=== PATIENT | male | born 1975 | race American Indian/Alaskan Native ===

== ENCOUNTER 2016-09-16 13:39 | Emergency (ER) | payer MEDICARE ==
[2016-09-16 15:29] VITALS: BP 132/88
--- NOTE | 2016-09-16 15:36 | Emergency Department Report ---
Chief Complaint: Anxiety Stated Complaint: DIZZINESS,CHEST PAIN, PANIC ATTACK Time Seen by Provider: 09/16/16 15:23 - HPI History of Present Illness: PT states he has been stressed. PT states his fiance left and he is home with the kids. PT states he has head pressure and he was having some chest pain - ROS Review of Systems: + anxiety + headache - Exam Vital Signs: Vital Signs 09/16/16 15:23 Temperature 98.2 F Pulse Rate 58 L Respiratory 18 Rate Blood Pressure 132/88 O2 Sat by Pulse 100 Oximetry Physical Exam: PT looks well, non toxic GSC 15 steady gait MSE screening note: Focused history and physical exam performed. Due to findings the following was ordered: labs, ekg, xr ED Disposition for MSE Condition: Stable
[2016-09-16 15:58] LABS: Basophils % (Auto) 0.8 % (0.0-1.8); Eosinophils % (Auto) 1.5 % (0.0-4.3); Hemoglobin 13.2 gm/dl (11.8-15.2); Mean Corpuscular HGB Conc 33 % (32-34); Mean Corpuscular Hemoglobin 29 pg (28-32); Mean Corpuscular Volume 88 fl (84-94); Platelet Count 282 K/mm3 (140-440); Red Blood Count 4.53 M/mm3 (3.65-5.03); Red Cell Distribution Width 13.4 % (13.2-15.2); White Blood Count 11.7 K/mm3 (4.5-11.0)
[2016-09-16 16:12] LABS: Anion Gap 17 mmol/L; BUN/Creatinine Ratio 7.69; Blood Urea Nitrogen 10 mg/dL (9-20); Calcium 9.5 mg/dL (8.4-10.2); Carbon Dioxide 26 mmol/L (22-30); Glucose 102 mg/dL (75-100); Potassium 4.6 mmol/L (3.6-5.0); Sodium 133 mmol/L (137-145)
[2016-09-16 16:22] LABS: Urine Drugs of Abuse Note Disclamer
[2016-09-16 16:49] LABS: Bilirubin,Urine NEG (Negative); Blood,Urine NEG (Negative); Ketones,Urine NEG (Negative); Leukocyte Esterase,Urine NEG (Negative); Nitrite,Urine NEG (Negative); Protein,Urine <15 mg/dL mg/dL (Negative); RBC,Urine < 1.0 /HPF (0.0-6.0); Urobilinogen,Urine < 2.0 mg/dL (<2.0)
[2016-09-16 16:52] LABS: WBC,Urine < 1.0 /HPF (0.0-6.0)
--- NOTE | 2016-09-16 22:05 | XRay Report ---
FINAL REPORT EXAM: XR CHEST ROUTINE 2V HISTORY: CHEST PAIN TECHNIQUE: PA and lateral chest radiographs PRIORS: None. FINDINGS: No mediastinal shift. Cardiac silhouette is not enlarged. No pneumothorax, effusion, or focal pulmonary opacity. No acute skeletal finding. IMPRESSION: No focal pulmonary opacity.
--- NOTE | 2016-09-17 14:11 | ED Elopement Review ---
ED Pt Elopement review - Results review Lab results: Laboratory Tests 09/16/16 09/16/16 09/16/16 15:37 15:37 15:37 WBC 11.7 H RBC 4.53 Hgb 13.2 Hct 40.0 MCV 88 MCH 29 MCHC 33 RDW 13.4 Plt Count 282 Lymph % (Auto) 21.2 Worth % (Auto) 6.1 Eos % (Auto) 1.5 Baso % (Auto) 0.8 Lymph # 2.5 Worth # 0.7 Eos # 0.2 Baso # 0.1 Seg Neutrophils % 70.4 H Seg Neutrophils # 8.3 H Sodium 133 L Potassium 4.6 Chloride 95.0 L Carbon Dioxide 26 Anion Gap 17 BUN 10 Creatinine 1.3 Estimated GFR > 60 BUN/Creatinine Ratio 7.69 Glucose 102 H Calcium 9.5 Troponin T < 0.010 Urine Color Urine Turbidity Urine pH Ur Specific [place] Urine Protein Urine Glucose (UA) Urine Ketones Urine Blood Urine Nitrite Urine Bilirubin Urine Urobilinogen Ur Leukocyte Esterase Urine WBC (Auto) Urine RBC (Auto) Urine Opiates Screen Urine Methadone Screen Ur Barbiturates Screen Ur Phencyclidine Scrn Ur Amphetamines Screen U Benzodiazepines Scrn Urine Cocaine Screen U Marijuana (THC) Screen Drugs of Abuse Note Plasma/Serum Alcohol < 0.01 09/16/16 09/16/16 16:10 16:10 WBC RBC Hgb Hct MCV MCH MCHC RDW Plt Count Lymph % (Auto) Worth % (Auto) Eos % (Auto) Baso % (Auto) Lymph # Worth # Eos # Baso # Seg Neutrophils % Seg Neutrophils # Sodium Potassium Chloride Carbon Dioxide Anion Gap BUN Creatinine Estimated GFR BUN/Creatinine Ratio Glucose Calcium Troponin T Urine Color Colorless Urine Turbidity Clear Urine pH 6.0 Ur Specific [place] 1.001 L Urine Protein <15 mg/dl Urine Glucose (UA) Neg Urine Ketones Neg Urine Blood Neg Urine Nitrite Neg Urine Bilirubin Neg Urine Urobilinogen < 2.0 Ur Leukocyte Esterase Neg Urine WBC (Auto) < 1.0 Urine RBC (Auto) < 1.0 Urine Opiates Screen Presumptive negative Urine Methadone Screen Presumptive negative Ur Barbiturates Screen Presumptive negative Ur Phencyclidine Scrn Presumptive negative Ur Amphetamines Screen Presumptive negative U Benzodiazepines Scrn Presumptive negative Urine Cocaine Screen Presumptive negative U Marijuana (THC) Screen Presumptive negative Drugs of Abuse Note Disclamer Plasma/Serum Alcohol - Call Back decision Pt Call Back Decision: No action required
== END 2016-09-16 22:36 | disposition left against medical advice (07) ==
LOC: ED 13:39
DX: R42 Dizziness and giddiness (principal); R41.9 Unspecified symptoms and signs involving cognitive functions and awareness; R07.9 Chest pain, unspecified; Z53.21 Procedure and treatment not carried out due to patient leaving prior to being seen by health care provider
CPT/HCPCS: 36415; 71020; 80048; 80307; 81001; 84484; 85025; 93005; 93010; G0480; 80320

== ENCOUNTER 2016-11-16 19:56 | Emergency (ER) | payer MEDICARE ==
[2016-11-16 22:05] LABS: Basophils % (Auto) 0.5 % (0.0-1.8); Eosinophils % (Auto) 0.8 % (0.0-4.3); Hematocrit 40.1 % (35.5-45.6); Hemoglobin 13.5 gm/dl (11.8-15.2); Mean Corpuscular HGB Conc 34 % (32-34); Mean Corpuscular Hemoglobin 30 pg (28-32); Mean Corpuscular Volume 89 fl (84-94); Platelet Count 269 K/mm3 (140-440); Red Blood Count 4.51 M/mm3 (3.65-5.03); Red Cell Distribution Width 13.4 % (13.2-15.2); White Blood Count 11.8 K/mm3 (4.5-11.0)
[2016-11-16 22:16] LABS: Anion Gap 21 mmol/L; BUN/Creatinine Ratio 8.46; Blood Urea Nitrogen 11 mg/dL (9-20); Calcium 9.3 mg/dL (8.4-10.2); Carbon Dioxide 24 mmol/L (22-30); Chloride 94.1 mmol/L (98-107); Glucose 97 mg/dL (75-100); Potassium 3.8 mmol/L (3.6-5.0); Sodium 135 mmol/L (137-145)
[2016-11-17 01:38] VITALS: BP 135/71
--- NOTE | 2016-11-17 02:43 | Emergency Department Report ---
ED General Adult HPI - General Chief complaint: Anxiety Stated complaint: ANXIETY Time Seen by Provider: 11/17/16 02:37 Source: patient, RN notes reviewed, old records reviewed Mode of arrival: Ambulatory Limitations: No Limitations - History of Present Illness Initial comments: This is a 41-year-old male. He is previously unknown to me. He typically follows at the [facility]. The patient presents to the ER with complaint of a panic attack. He reports that his chest was racing. He reports this has since resolved. He denies headache, neck pain, chest pain, abdominal pain or shortness of breath. He denies nausea, vomiting or diaphoresis. There is no leg pain. There is no leg swelling. No recent trips greater than 4 hours. No recent hospitalizations. No recent cocaine use. No recent aspirin use. He is not homicidal. He is not suicidal. -: Gradual Location: chest Quality: aching Consistency: now resolved Improves with: none Worsens with: other (stress) - Related Data Home Medications Medication Instructions Recorded Confirmed Last Taken Lisinopril [Zestril] 40 mg PO QDAY 01/22/14 11/17/16 11/16/16 Sertraline [Zoloft] 100 mg PO QDAY 01/22/14 11/17/16 11/16/16 Simvastatin [Zocor TAB] 40 mg PO QHS 01/22/14 11/17/16 11/16/16 Allergies Allergy/AdvReac Type Severity Reaction Status Date / Time Penicillins Allergy Unknown Verified 09/16/16 15:29 bee venom (honey bee) AdvReac Swelling Verified 09/16/16 15:29 ED Review of Systems ROS: Stated complaint: ANXIETY Other details as noted in HPI Eyes: denies: vision change ENT: denies: throat pain Respiratory: denies: cough Cardiovascular: palpitations Gastrointestinal: denies: nausea, vomiting Genitourinary: denies: urgency, dysuria Musculoskeletal: denies: back pain Skin: denies: lesions Neurological: denies: headache, weakness Psychiatric: anxiety. denies: homicidal thoughts, suicidal thoughts ED Past Medical Hx - Past Medical History Previous Medical History?: Yes Hx Hypertension: Yes Hx Renal Disease: Yes ("SLIGHTLY ELEVATED CREAT. LEVEL") Hx Psychiatric Treatment: Yes (anxiety, depression) Additional medical history: hyperlipidemia - Surgical History Past Surgical History?: Yes Additional Surgical History: kidney biopsy. LYMPH NODE BIOPSY - Social History Smoking Status: Never Smoker Substance Use Type: None - Medications Home Medications: Home Medications Medication Instructions Recorded Confirmed Last Taken Type Lisinopril [Zestril] 40 mg PO QDAY 01/22/14 11/17/16 11/16/16 History Sertraline [Zoloft] 100 mg PO QDAY 01/22/14 11/17/16 11/16/16 History Simvastatin [Zocor TAB] 40 mg PO QHS 01/22/14 11/17/16 11/16/16 History ED Physical Exam - General Limitations: No Limitations General appearance: alert, in no apparent distress - Head Head exam: Present: atraumatic, normocephalic - Eye Eye exam: Present: normal appearance, PERRL, EOMI. Absent: nystagmus - ENT ENT exam: Present: normal exam, normal orophraynx, mucous membranes moist, normal external ear exam - Neck Neck exam: Present: normal inspection, full ROM. Absent: tenderness, meningismus - Respiratory Respiratory exam: Present: normal lung sounds bilaterally. Absent: respiratory distress, wheezes, rales, rhonchi, stridor, chest wall tenderness, accessory muscle use, decreased breath sounds, prolonged expiratory - Cardiovascular Cardiovascular Exam: Present: regular rate, normal rhythm, normal heart sounds. Absent: bradycardia, tachycardia, irregular rhythm, systolic murmur, diastolic murmur, rubs, gallop - GI/Abdominal GI/Abdominal exam: Present: soft, normal bowel sounds. Absent: distended, tenderness, guarding, rebound, rigid, pulsatile mass - Rectal Rectal exam: Present: deferred - Extremities Exam Extremities exam: Present: normal inspection, full ROM, normal capillary refill. Absent: tenderness, pedal edema, joint swelling, calf tenderness - Back Exam Back exam: Present: normal inspection, full ROM. Absent: tenderness, CVA tenderness (R), CVA tenderness (L), muscle spasm, paraspinal tenderness, vertebral tenderness - Neurological Exam Neurological exam: Present: alert, oriented X3, normal gait, other (Extraocular movements intact. Tongue midline. No facial droop. Facial sensation intact to light touch in the V1, V2, V3 distribution bilaterally. 5 and 5 strength in 4 extremities.. Sensation is intact to light touch in 4 extremities.). Absent : motor sensory deficit - Psychiatric Psychiatric exam: Present: anxious. Absent: homicidal ideation, suicidal ideation - Skin Skin exam: Present: warm, dry, intact, normal color. Absent: rash ED Course Vital Signs 11/16/16 11/17/16 11/17/16 21:23 00:55 01:21 Temperature 98.4 F Pulse Rate 79 74 91 H Respiratory 18 16 Rate Blood Pressure 146/91 O2 Sat by Pulse 100 Oximetry 11/17/16 11/17/16 11/17/16 01:23 01:25 01:38 Temperature 98.4 F Pulse Rate 71 66 Respiratory 21 19 Rate Blood Pressure 135/71 135/71 O2 Sat by Pulse 100 100 Oximetry 11/17/16 01:44 Temperature Pulse Rate Respiratory 18 Rate Blood Pressure O2 Sat by Pulse 100 Oximetry ED Medical Decision Making - Lab Data Result diagrams: 11/16/16 21:40 11/16/16 21:40 Vital Signs 11/16/16 11/17/16 11/17/16 21:23 00:55 01:21 Temperature 98.4 F Pulse Rate 79 74 91 H Respiratory 18 16 Rate Blood Pressure 146/91 O2 Sat by Pulse 100 Oximetry 11/17/16 11/17/16 11/17/16 01:23 01:25 01:38 Temperature 98.4 F Pulse Rate 71 66 Respiratory 21 19 Rate Blood Pressure 135/71 135/71 O2 Sat by Pulse 100 100 Oximetry 11/17/16 01:44 Temperature Pulse Rate Respiratory 18 Rate Blood Pressure O2 Sat by Pulse 100 Oximetry Lab Results 11/16/16 11/16/16 11/17/16 Range/Units 21:40 21:40 00:46 WBC 11.8 H (4.5-11.0) K/mm3 RBC 4.51 (3.65-5.03) M/mm3 Hgb 13.5 (11.8-15.2) gm/dl Hct 40.1 (35.5-45.6) % MCV 89 (84-94) fl MCH 30 (28-32) pg MCHC 34 (32-34) % RDW 13.4 (13.2-15.2) % Plt Count 269 (140-440) K/mm3 Lymph % (Auto) 25.5 (13.4-35.0) % [place] % (Auto) 3.9 (0.0-7.3) % Eos % (Auto) 0.8 (0.0-4.3) % Baso % (Auto) 0.5 (0.0-1.8) % Lymph # 3.0 (1.2-5.4) K/mm3 [place] # 0.5 (0.0-0.8) K/mm3 Eos # 0.1 (0.0-0.4) K/mm3 Baso # 0.1 (0.0-0.1) K/mm3 Seg Neutrophils % 69.3 (40.0-70.0) % Seg Neutrophils # 8.1 H (1.8-7.7) K/mm3 Sodium 135 L (137-145) mmol/L Potassium 3.8 (3.6-5.0) mmol/L Chloride 94.1 L (98-107) mmol/L Carbon Dioxide 24 (22-30) mmol/L Anion Gap 21 mmol/L BUN 11 (9-20) mg/dL Creatinine 1.3 (0.8-1.5) mg/dL Estimated GFR > 60 ml/min BUN/Creatinine Ratio 8.46 % Glucose 97 (75-100) mg/dL Calcium 9.3 (8.4-10.2) mg/dL Troponin T < 0.010 < 0.010 (0.00-0.029) ng/mL - EKG Data -: EKG Interpreted by Tx EKG shows normal: sinus rhythm - EKG Data 11/17/16 03:16 EKG #1 demonstrates sinus, 67 beats per minute, normal axis, not morphologically consistent with STEMI, Q waves noted in the inferior leads. EKG #2 demonstrates sinus bradycardia, first-degree AV block, not morphologically consistent with STEMI. EKGs appear unchanged when compared to prior from September 2016 11/17/16 03:18 - Radiology Data Radiology results: image reviewed interpreted by me: X-ray of the chest is negative for acute disease - Medical Decision Making Differential diagnosis: Panic attack, mood disorder, acute coronary syndrome, pneumonia, costochondritis Assessment and plan: 41-year-old male who presents with his typical panic attack. No pulmonary embolus or DVT risk factors, low risk by well's criteria criteria, low risk by FLOR score, low risk by heart score, perc negative Chest x-ray negative. Troponin negative 2. EKG unchanged 2, and unchanged compared to prior. Patient clinically sober at this time, does not require 1013. Indicates he will follow-up. I don't feel patient requires admission to the hospital for ACS risk stratification. He can follow-up as an outpatient. Critical care attestation.: If time is entered above; I have spent that time in minutes in the direct care of this critically ill patient, excluding procedure time. ED Disposition Clinical Impression: Chest tightness Disposition: DC-01 TO HOME OR SELFCARE Is pt being admited?: No Does the pt Need Aspirin: No Condition: Stable Instructions: Panic Disorder (ED) Additional Instructions: Continue current outpatient medications. Follow up with a primary care doctor or disability rater within the next 7-10 days. Return to the ER right away with new pain, worsening pain, migration of pain, fevers, chills, chest pain, shortness of breath, confusion, intractable nausea or vomiting, inability to tolerate liquid feeds. Referrals: PRIMARY CARE, [Primary Care Provider] - 3-5 Days DAGOBERTO MONGE MD [Staff Physician] - 3-5 Days MARNIE KELLOGG MD [Staff Physician] - 3-5 Days FLAVIO REA MD [Staff Physician] - 3-5 Days
--- NOTE | 2016-11-17 07:35 | XRay Report ---
ROUTINE CHEST, TWO VIEWS: HISTORY: chest pain. The trachea, heart, mediastinal contour, lung spencer and bony thorax are unremarkable. IMPRESSION: Unremarkable chest x-ray.
== END 2016-11-17 03:31 | disposition home or self-care (01) ==
LOC: ED 19:56
DX: R07.89 Other chest pain (principal); I10 Essential (primary) hypertension; F32.9 Major depressive disorder, single episode, unspecified; F41.9 Anxiety disorder, unspecified; Z88.0 Allergy status to penicillin; Z91.030 Bee allergy status
CPT/HCPCS: 36415; 71020; 80048; 84484; 85025; 93005; 93010

== ENCOUNTER 2016-11-20 14:17 | Emergency (ER) | payer MEDICARE ==
[2016-11-20 14:41] VITALS: BP 147/93
== END 2016-11-20 19:56 | disposition left against medical advice (07) ==
LOC: ED 14:17
DX: F41.0 Panic disorder [episodic paroxysmal anxiety] (principal); Z53.21 Procedure and treatment not carried out due to patient leaving prior to being seen by health care provider
CPT/HCPCS: 93005; 93010

== ENCOUNTER 2016-12-09 09:12 | Emergency (ER) | payer MEDICARE ==
[2016-12-09 10:10] LABS: Basophils % (Auto) 0.5 % (0.0-1.8); Eosinophils % (Auto) 1.2 % (0.0-4.3); Hematocrit 43.2 % (35.5-45.6); Hemoglobin 14.4 gm/dl (11.8-15.2); Mean Corpuscular HGB Conc 33 % (32-34); Mean Corpuscular Hemoglobin 30 pg (28-32); Mean Corpuscular Volume 89 fl (84-94); Platelet Count 299 K/mm3 (140-440); Red Blood Count 4.84 M/mm3 (3.65-5.03); Red Cell Distribution Width 13.2 % (13.2-15.2); White Blood Count 14.3 K/mm3 (4.5-11.0)
[2016-12-09 10:15] LABS: Anion Gap 20 mmol/L; BUN/Creatinine Ratio 13.07; Blood Urea Nitrogen 17 mg/dL (9-20); Calcium 9.1 mg/dL (8.4-10.2); Carbon Dioxide 21 mmol/L (22-30); Chloride 98.2 mmol/L (98-107); Glucose 140 mg/dL (75-100); Potassium 3.6 mmol/L (3.6-5.0); Sodium 136 mmol/L (137-145)
[2016-12-09 10:39] LABS: INR 0.96 (0.87-1.13)
[2016-12-09 10:40] LABS: Partial Thromboplastin Time 30.3 Sec. (24.2-36.6)
[2016-12-09 17:50] VITALS: BP 136/92
== END 2016-12-09 17:35 | disposition left against medical advice (07) ==
LOC: ED 09:12
DX: R07.9 Chest pain, unspecified (principal); Z53.21 Procedure and treatment not carried out due to patient leaving prior to being seen by health care provider
CPT/HCPCS: 36415; 80048; 84484; 85025; 85610; 85730; 93005; 93010

== ENCOUNTER 2019-01-27 13:17 | Emergency (ER) | payer MEDICARE ==
[2019-01-27 14:04] VITALS: BP 152/90
--- NOTE | 2019-01-27 14:09 | Event Note ---
ED Screening Note Date of service: 01/27/19 Time: 14:08 ED Screening Note: Pt complains of panic attack x today. tates hx of anxiety and panic attacks. Reports attacks worsening and occurring twice a week now due to life stressors. PT states he had chest tightness and trouble swallowing and states he is concerned for his heart. Denies any current chest pain or symptoms This initial assessment/diagnostic orders/clinical plan/treatment(s) is/are subject to change based on patients health status, clinical progression and re- assessment by fellow clinical providers in the ED. Further treatment and workup at subsequent clinical providers discretion. Patient/guardian urged not to elope from the ED as their condition may be serious if not clinically assessed and managed. Initial orders include: Labs CXR
--- NOTE | 2019-01-27 14:55 | Emergency Department Report ---
ED Anxiety HPI - General Chief Complaint: Anxiety Stated Complaint: PANIC ATTACK Time Seen by Provider: 01/27/19 14:49 Source: patient Mode of arrival: Ambulatory - History of Present Illness Initial Comments: 43-year-old -Malaysian male presents to the emergency room reporting had a panic attack prior to coming in. Patient states that he has panic attacks at least twice a week. Patient reports has a past medical history of hypertension hypercholesterolemia panic attacks. Patient reports she is followed by the [facility]. Patient denies any suicidal or homicidal ideation. Patient reports is currently taken Celexa 20 mg. Patient admits he gets about 6-8 hours of sleep at night. MD Complaint: anxiety Onset/Timin -: hour(s) Symptoms: other (felt weird.) Place: home Previous History of Same: Yes Severity: mild Quality: intermittant, similar to prior episodes Provoking factors: none known Improves With: deep breaths Worsens With: nothing - Related Data Home Medications: Home Medications Medication Instructions Recorded Confirmed Last Taken Lisinopril [Zestril] 40 mg PO QDAY 01/22/14 11/17/16 11/16/16 Sertraline [Zoloft] 100 mg PO QDAY 01/22/14 11/17/16 11/16/16 Simvastatin (Nf) [Zocor TAB] 40 mg PO QHS 01/22/14 11/17/16 11/16/16 Allergies/Adverse Reactions: Allergies Allergy/AdvReac Type Severity Reaction Status Date / Time Penicillins Allergy Unknown Verified 01/27/19 14:04 venom-honey bee AdvReac Swelling Verified 01/27/19 14:04 [bee venom (honey bee)] ED Review of Systems ROS: Stated complaint: PANIC ATTACK Other details as noted in HPI Comment: All other systems reviewed and negative ED Past Medical Hx - Past Medical History Hx Hypertension: Yes Hx Renal Disease: Yes ("SLIGHTLY ELEVATED CREAT. LEVEL") Hx Psychiatric Treatment: Yes (anxiety, depression) Additional medical history: hyperlipidemia - Surgical History Additional Surgical History: kidney biopsy. LYMPH NODE BIOPSY - Social History Smoking Status: Never Smoker Substance Use Type: None - Medications Home Medications: Home Medications Medication Instructions Recorded Confirmed Last Taken Type Lisinopril [Zestril] 40 mg PO QDAY 01/22/14 11/17/16 11/16/16 History Sertraline [Zoloft] 100 mg PO QDAY 01/22/14 11/17/16 11/16/16 History Simvastatin (Nf) [Zocor TAB] 40 mg PO QHS 01/22/14 11/17/16 11/16/16 History ED Physical Exam - General Limitations: No Limitations General appearance: alert, in no apparent distress - Head Head exam: Present: atraumatic, normocephalic - Eye Eye exam: Present: normal appearance - Neurological Exam Neurological exam: Present: alert, oriented X3, normal gait - Psychiatric Psychiatric exam: Present: normal affect, normal mood - Skin Skin exam: Present: warm, dry, intact, normal color. Absent: rash ED Course Vital Signs 01/27/19 14:02 Temperature 99.1 F Pulse Rate 75 Respiratory 16 Rate Blood Pressure 152/90 O2 Sat by Pulse 98 Oximetry ED Medical Decision Making - Medical Decision Making 43-year-old -Malaysian male presents to the emergency room reporting had a panic attack prior to coming in. Patient states that he has panic attacks at least twice a week. Patient reports has a past medical history of hypertension hypercholesterolemia panic attacks. Patient reports she is followed by the [facility]. Patient denies any suicidal or homicidal ideation. Patient reports is currently taken Celexa 20 mg. Patient admits he gets about 6-8 hours of sleep at night. Patient is to follow-up with the [facility]. Critical care attestation.: If time is entered above; I have spent that time in minutes in the direct care of this critically ill patient, excluding procedure time. ED Disposition Clinical Impression: Anxiety Disposition: DC-01 TO HOME OR SELFCARE Is pt being admited?: No Does the pt Need Aspirin: No Condition: Stable Instructions: Anxiety (ED) Additional Instructions: Continue with medications. Follow up at the [facility] or [facility]. I have listed their information below for your convenience. Referrals: [facility] [Outside] - 3-5 Days [facility] [Outside] - 3-5 Days
== END 2019-01-27 15:16 | disposition home or self-care (01) ==
LOC: ED 13:17
DX: F41.9 Anxiety disorder, unspecified (principal); I10 Essential (primary) hypertension; Z79.899 Other long term (current) drug therapy; Z88.0 Allergy status to penicillin; Z91.030 Bee allergy status
CPT/HCPCS: 99282

== ENCOUNTER 2019-01-30 15:01 | Emergency (ER) | payer MEDICARE ==
[2019-01-30 15:31] VITALS: BP 142/87
--- NOTE | 2019-01-30 15:32 | Emergency Department Report ---
Blank Doc - Documentation Documentation: This is a 43-year-old male that presents with depression and anxiety. Denies any SI/HI. This initial assessment/diagnostic orders/clinical plan/treatment(s) is/are subject to change based on patient's health status, clinical progression and re- assessment by fellow clinical providers in the ED. Further treatment and workup at subsequent clinical providers discretion. Patient/guardians urged not to elope from the ED as their condition may be serious if not clinically assessed and managed. Initial orders include: 1- Patient sent to MAIN ED for further evaluation and treatment 2- drop forge hand was notified to have patient be brought back [facility]. 3- RN was notified to keep patient as close range and observation until room available
[2019-01-30 17:02] LABS: RBC,Urine < 1.0 /HPF (0.0-6.0); WBC,Urine < 1.0 /HPF (0.0-6.0)
[2019-01-30 17:03] LABS: BUN/Creatinine Ratio 8; Basophils # (Auto) 0.1 K/mm3 (0.0-0.1); Basophils % (Auto) 0.7 % (0.0-1.8); Blood Urea Nitrogen 10 mg/dL (9-20); Calcium 9.6 mg/dL (8.4-10.2); Eosinophils # (Auto) 0.1 K/mm3 (0.0-0.4); Eosinophils % (Auto) 1.5 % (0.0-4.3); Hematocrit 45.4 % (35.5-45.6); Hemoglobin 15.3 gm/dl (11.8-15.2); Hemolysis Index 0; Lymphocytes # (Auto) 2.1 K/mm3 (1.2-5.4); Lymphocytes % (Auto) 23.6 % (13.4-35.0); Mean Corpuscular HGB Conc 34 % (32-34); Mean Corpuscular Volume 90 fl (84-94); Monocytes # (Auto) 0.6 K/mm3 (0.0-0.8); Monocytes % (Auto) 7.3 % (0.0-7.3); Platelet Count 324 K/mm3 (140-440); Red Blood Count 5.04 M/mm3 (3.65-5.03)
[2019-01-30 17:09] LABS: Amphetamine Screen,Urine PRESUMPTIVE NEGATIVE; Benzodiazepines Screen,Urine PRESUMPTIVE NEGATIVE; Cannabinoid Screen,Urine PRESUMPTIVE NEGATIVE; Cocaine Screen,Urine PRESUMPTIVE NEGATIVE; Methadone Screen,Urine PRESUMPTIVE NEGATIVE; Opiate Screen,Urine PRESUMPTIVE NEGATIVE
[2019-01-30 17:20] LABS: Bilirubin,Urine Negative (Negative); Color,Urine Straw (Yellow)
[2019-01-30 17:21] LABS: Blood,Urine Negative (Negative); Protein,Urine <15 mg/dL mg/dL (Negative); Urobilinogen,Urine < 2.0 mg/dL (<2.0)
--- NOTE | 2019-01-30 20:32 | Emergency Department Report ---
ED Psych HPI - General Chief Complaint: Psych Stated Complaint: DEPRESSION/PANIC ATTACK Time Seen by Provider: 01/30/19 15:31 Source: patient Mode of arrival: Ambulatory - History of Present Illness Initial Comments: Patient is a 43-year-old -[place] male with past medical history of anxiety and depression who is presenting after having a possible anxiety attack. Patient states he was feeling down and somewhat depressed and when asked whether he had a plan to hurt himself he stated "I don't know". Patient states he was in a bad R unit with his feet ex girlfriend who has a restraining order on him. Patient states he was hyperventilating and was having some confused thoughts prior to arrival. - Related Data Home Medications Medication Instructions Recorded Confirmed Last Taken Lisinopril [Zestril] 40 mg PO QDAY 01/22/14 11/17/16 11/16/16 Sertraline [Zoloft] 100 mg PO QDAY 01/22/14 11/17/16 11/16/16 Simvastatin (Nf) [Zocor TAB] 40 mg PO QHS 01/22/14 11/17/16 11/16/16 Allergies Allergy/AdvReac Type Severity Reaction Status Date / Time Penicillins Allergy Unknown Verified 01/27/19 14:04 venom-honey bee AdvReac Swelling Verified 01/27/19 14:04 [bee venom (honey bee)] ED Review of Systems ROS: Stated complaint: DEPRESSION/PANIC ATTACK Other details as noted in HPI Comment: All other systems reviewed and negative ED Past Medical Hx - Past Medical History Previous Medical History?: Yes Hx Hypertension: Yes Hx Renal Disease: Yes ("SLIGHTLY ELEVATED CREAT. LEVEL") Hx Psychiatric Treatment: Yes (anxiety, depression) Additional medical history: hyperlipidemia - Surgical History Past Surgical History?: Yes Additional Surgical History: kidney biopsy. LYMPH NODE BIOPSY - Social History Smoking Status: Current Some Day Smoker Substance Use Type: None - Medications Home Medications: Home Medications Medication Instructions Recorded Confirmed Last Taken Type Lisinopril [Zestril] 40 mg PO QDAY 01/22/14 11/17/16 11/16/16 History Sertraline [Zoloft] 100 mg PO QDAY 01/22/14 11/17/16 11/16/16 History Simvastatin (Nf) [Zocor TAB] 40 mg PO QHS 01/22/14 11/17/16 11/16/16 History ED Physical Exam - General Limitations: No Limitations General appearance: alert, in no apparent distress - Head Head exam: Present: atraumatic, normocephalic - Eye Eye exam: Present: normal appearance - ENT ENT exam: Present: mucous membranes moist - Neck Neck exam: Present: normal inspection - Respiratory Respiratory exam: Present: normal lung sounds bilaterally. Absent: respiratory distress, wheezes, rales, rhonchi - Cardiovascular Cardiovascular Exam: Present: regular rate, normal rhythm. Absent: systolic murmur, diastolic murmur, rubs, gallop - GI/Abdominal GI/Abdominal exam: Present: soft, normal bowel sounds. Absent: distended, tenderness, guarding - Rectal Rectal exam: Present: deferred - Extremities Exam Extremities exam: Present: normal inspection - Back Exam Back exam: Present: normal inspection - Neurological Exam Neurological exam: Present: alert, oriented X3 - Psychiatric Psychiatric exam: Present: normal affect, normal mood - Skin Skin exam: Present: warm, dry, intact, normal color. Absent: rash ED Course Vital Signs 01/30/19 15:05 Temperature 98.6 F Pulse Rate 80 Respiratory 18 Rate Blood Pressure 142/87 O2 Sat by Pulse 99 Oximetry ED Medical Decision Making - Lab Data Result diagrams: 01/30/19 16:26 01/30/19 16:26 Lab Results 01/30/19 01/30/19 01/30/19 Range/Units 16:17 16:17 16:26 WBC 8.8 (4.5-11.0) K/mm3 RBC 5.04 H (3.65-5.03) M/mm3 Hgb 15.3 H (11.8-15.2) gm/dl Hct 45.4 (35.5-45.6) % MCV 90 (84-94) fl MCH 30 (28-32) pg MCHC 34 (32-34) % RDW 13.0 L (13.2-15.2) % Plt Count 324 (140-440) K/mm3 Lymph % (Auto) 23.6 (13.4-35.0) % Roberts % (Auto) 7.3 (0.0-7.3) % Eos % (Auto) 1.5 (0.0-4.3) % Baso % (Auto) 0.7 (0.0-1.8) % Lymph # 2.1 (1.2-5.4) K/mm3 Roberts # 0.6 (0.0-0.8) K/mm3 Eos # 0.1 (0.0-0.4) K/mm3 Baso # 0.1 (0.0-0.1) K/mm3 Seg Neutrophils % 66.9 (40.0-70.0) % Seg Neutrophils # 5.9 (1.8-7.7) K/mm3 Sodium (137-145) mmol/L Potassium (3.6-5.0) mmol/L Chloride (98-107) mmol/L Carbon Dioxide (22-30) mmol/L Anion Gap mmol/L BUN (9-20) mg/dL Creatinine (0.8-1.5) mg/dL Estimated GFR ml/min BUN/Creatinine Ratio % Glucose (75-100) mg/dL Calcium (8.4-10.2) mg/dL Urine Color Straw (Yellow) Urine Turbidity Clear (Clear) Urine pH 6.0 (5.0-7.0) Ur Specific Wilson 1.030 (1.003-1.030) Urine Protein <15 mg/dl (Negative) mg/dL Urine Glucose (UA) Negative (Negative) mg/dL Urine Ketones Negative (Negative) mg/dL Urine Blood Negative (Negative) Urine Nitrite Negative (Negative) Ur Reducing Substances Not Reportable Urine Bilirubin Negative (Negative) Urine Ictotest Not Reportable Urine Urobilinogen < 2.0 (<2.0) mg/dL Ur Leukocyte Esterase Negative (Negative) Urine WBC (Auto) < 1.0 (0.0-6.0) /HPF Urine RBC (Auto) < 1.0 (0.0-6.0) /HPF Salicylates (2.8-20.0) mg/dL Urine Opiates Screen Presumptive negative Urine Methadone Screen Presumptive negative Acetaminophen (10.0-30.0) ug/mL Ur Barbiturates Screen Presumptive negative Ur Phencyclidine Scrn Presumptive negative Ur Amphetamines Screen Presumptive negative U Benzodiazepines Scrn Presumptive negative Urine Cocaine Screen Presumptive negative U Marijuana (THC) Screen Presumptive negative Drugs of Abuse Note Disclamer Plasma/Serum Alcohol (0-0.07) % 10/21/19 10/21/19 10/21/19 Range/Units 16:26 16:26 16:26 WBC (4.5-11.0) K/mm3 RBC (3.65-5.03) M/mm3 Hgb (11.8-15.2) gm/dl Hct (35.5-45.6) % MCV (84-94) fl MCH (28-32) pg MCHC (32-34) % RDW (13.2-15.2) % Plt Count (140-440) K/mm3 Lymph % (Auto) (13.4-35.0) % Roberts % (Auto) (0.0-7.3) % Eos % (Auto) (0.0-4.3) % Baso % (Auto) (0.0-1.8) % Lymph # (1.2-5.4) K/mm3 Roberts # (0.0-0.8) K/mm3 Eos # (0.0-0.4) K/mm3 Baso # (0.0-0.1) K/mm3 Seg Neutrophils % (40.0-70.0) % Seg Neutrophils # (1.8-7.7) K/mm3 Sodium 137 (137-145) mmol/L Potassium 3.9 (3.6-5.0) mmol/L Chloride 96.3 L (98-107) mmol/L Carbon Dioxide 25 (22-30) mmol/L Anion Gap 20 mmol/L BUN 10 (9-20) mg/dL Creatinine 1.3 (0.8-1.5) mg/dL Estimated GFR > 60 ml/min BUN/Creatinine Ratio 8 % Glucose 110 H (75-100) mg/dL Calcium 9.6 (8.4-10.2) mg/dL Urine Color (Yellow) Urine Turbidity (Clear) Urine pH (5.0-7.0) Ur Specific Wilson (1.003-1.030) Urine Protein (Negative) mg/dL Urine Glucose (UA) (Negative) mg/dL Urine Ketones (Negative) mg/dL Urine Blood (Negative) Urine Nitrite (Negative) Ur Reducing Substances Urine Bilirubin (Negative) Urine Ictotest Urine Urobilinogen (<2.0) mg/dL Ur Leukocyte Esterase (Negative) Urine WBC (Auto) (0.0-6.0) /HPF Urine RBC (Auto) (0.0-6.0) /HPF Salicylates < 0.3 L (2.8-20.0) mg/dL Urine Opiates Screen Urine Methadone Screen Acetaminophen < 5.0 L (10.0-30.0) ug/mL Ur Barbiturates Screen Ur Phencyclidine Scrn Ur Amphetamines Screen U Benzodiazepines Scrn Urine Cocaine Screen U Marijuana (THC) Screen Drugs of Abuse Note Plasma/Serum Alcohol (0-0.07) % 01/30/19 Range/Units 16:26 WBC (4.5-11.0) K/mm3 RBC (3.65-5.03) M/mm3 Hgb (11.8-15.2) gm/dl Hct (35.5-45.6) % MCV (84-94) fl MCH (28-32) pg MCHC (32-34) % RDW (13.2-15.2) % Plt Count (140-440) K/mm3 Lymph % (Auto) (13.4-35.0) % Roberts % (Auto) (0.0-7.3) % Eos % (Auto) (0.0-4.3) % Baso % (Auto) (0.0-1.8) % Lymph # (1.2-5.4) K/mm3 Roberts # (0.0-0.8) K/mm3 Eos # (0.0-0.4) K/mm3 Baso # (0.0-0.1) K/mm3 Seg Neutrophils % (40.0-70.0) % Seg Neutrophils # (1.8-7.7) K/mm3 Sodium (137-145) mmol/L Potassium (3.6-5.0) mmol/L Chloride (98-107) mmol/L Carbon Dioxide (22-30) mmol/L Anion Gap mmol/L BUN (9-20) mg/dL Creatinine (0.8-1.5) mg/dL Estimated GFR ml/min BUN/Creatinine Ratio % Glucose (75-100) mg/dL Calcium (8.4-10.2) mg/dL Urine Color (Yellow) Urine Turbidity (Clear) Urine pH (5.0-7.0) Ur Specific Wilson (1.003-1.030) Urine Protein (Negative) mg/dL Urine Glucose (UA) (Negative) mg/dL Urine Ketones (Negative) mg/dL Urine Blood (Negative) Urine Nitrite (Negative) Ur Reducing Substances Urine Bilirubin (Negative) Urine Ictotest Urine Urobilinogen (<2.0) mg/dL Ur Leukocyte Esterase (Negative) Urine WBC (Auto) (0.0-6.0) /HPF Urine RBC (Auto) (0.0-6.0) /HPF Salicylates (2.8-20.0) mg/dL Urine Opiates Screen Urine Methadone Screen Acetaminophen (10.0-30.0) ug/mL Ur Barbiturates Screen Ur Phencyclidine Scrn Ur Amphetamines Screen U Benzodiazepines Scrn Urine Cocaine Screen U Marijuana (THC) Screen Drugs of Abuse Note Plasma/Serum Alcohol < 0.01 (0-0.07) % - Medical Decision Making Patient was medically cleared. Patient was very vague in his speech regarding whether he was having suicidal thoughts or not. Patient was seen by mental health assessors and they stated the patient was not a candidate for 1013 at this time. Patient was encouraged to follow with his therapist. Patient will be discharged home. Critical care attestation.: If time is entered above; I have spent that time in minutes in the direct care of this critically ill patient, excluding procedure time. ED Disposition Clinical Impression: Anxiety Disposition: DC-01 TO HOME OR SELFCARE Is pt being admited?: No Does the pt Need Aspirin: No Condition: Stable Referrals: MAGALY ALVAREZ MD [Primary Care Provider] - 3-5 Days Time of Disposition: 20:32
== END 2019-01-30 21:03 | disposition home or self-care (01) ==
LOC: EEVIPCON 15:01 → ED 15:01
DX: F41.9 Anxiety disorder, unspecified (principal); F32.9 Major depressive disorder, single episode, unspecified; I10 Essential (primary) hypertension; F17.200 Nicotine dependence, unspecified, uncomplicated; E78.5 Hyperlipidemia, unspecified; Z98.890 Other specified postprocedural states; Z88.0 Allergy status to penicillin; Z91.030 Bee allergy status
CPT/HCPCS: 36415; 80048; 80307; 80320; 81001; 85025; G0480

== ENCOUNTER 2019-01-31 10:02 | Emergency (ER) | payer MEDICARE ==
[2019-01-31 11:12] VITALS: BP 124/81
--- NOTE | 2019-01-31 12:30 | Emergency Department Report ---
ED Chest Pain HPI - General Chief Complaint: Chest Pain Stated Complaint: CHEST PAIN/PANIC ATTACK Time Seen by Provider: 01/31/19 11:03 Source: patient Mode of arrival: Ambulatory Limitations: No Limitations - History of Present Illness Initial Comments: 43-year-old male patient with history of anxiety and panic attacks presents today with complaints of a panic attack prior to arrival patient seen here yesterday for the same. He states that his heart began beating rapidly for about 5-10 minutes and he had a few minutes of chest tightness. Patient states it feels like his normal panic attack. Patient states he is currently taking citalopram and Abilify. He states he follows with Dr. vee, psychiatry. Patient states that he normally has 1-2 panic attacks a week, but his attacks have increased since having a new life stressor. Patient states that he will not be able to see his children for a year due to issues with his children's mother. Patient denies any current chest pain, shortness of breath, dizziness, leg pain or swelling, area of SC/CVA/DVT/PE, or recent long travel. She states he has a follow-up with Dr. Simeon in February. Complaint: other (Panic Attack) Severity scale (0 -10): 0 - Related Data Home Medications Medication Instructions Recorded Confirmed Last Taken Lisinopril [Zestril] 40 mg PO QDAY 01/22/14 11/17/16 11/16/16 Sertraline [Zoloft] 100 mg PO QDAY 01/22/14 11/17/16 11/16/16 Simvastatin (Nf) [Zocor TAB] 40 mg PO QHS 01/22/14 11/17/16 11/16/16 Previous Rx's Medication Instructions Recorded Last Taken Type hydrOXYzine PAMOATE [Vistaril] 25 mg PO Q6HR PRN #12 capsule 01/31/19 Unknown Rx Allergies Allergy/AdvReac Type Severity Reaction Status Date / Time Penicillins Allergy Unknown Verified 01/27/19 14:04 venom-honey bee AdvReac Swelling Verified 01/27/19 14:04 [bee venom (honey bee)] Heart Score - HEART Score History: Slightly suspicious EKG: Normal Age: < 45 Risk factors: No known risk factors Troponin: < normal limit HEART Score: 0 - Critical Actions Critical Actions: 0-3 pts:0.9-1.7%risk of adverse cardiac event.Candidate for discharge ED Review of Systems ROS: Stated complaint: CHEST PAIN/PANIC ATTACK Other details as noted in HPI Comment: All other systems reviewed and negative Respiratory: denies: cough, shortness of breath, wheezing Neurological: denies: headache, weakness, numbness, paresthesias Psychiatric: anxiety. denies: auditory hallucinations, visual hallucinations, homicidal thoughts, suicidal thoughts ED Past Medical Hx - Past Medical History Previous Medical History?: Yes Hx Hypertension: Yes Hx Renal Disease: Yes ("SLIGHTLY ELEVATED CREAT. LEVEL") Hx Psychiatric Treatment: Yes (anxiety, depression) Additional medical history: hyperlipidemia - Surgical History Past Surgical History?: Yes Additional Surgical History: kidney biopsy. LYMPH NODE BIOPSY - Social History Smoking Status: Current Some Day Smoker Substance Use Type: None - Medications Home Medications: Home Medications Medication Instructions Recorded Confirmed Last Taken Type Lisinopril [Zestril] 40 mg PO QDAY 01/22/14 11/17/16 11/16/16 History Sertraline [Zoloft] 100 mg PO QDAY 01/22/14 11/17/16 11/16/16 History Simvastatin (Nf) [Zocor TAB] 40 mg PO QHS 01/22/14 11/17/16 11/16/16 History hydrOXYzine PAMOATE [Vistaril] 25 mg PO Q6HR PRN #12 capsule 01/31/19 Unknown Rx ED Physical Exam - General Limitations: No Limitations ED Course Vital Signs 01/31/19 01/31/19 10:07 11:11 Temperature 98.6 F Pulse Rate 114 H 92 H Respiratory 16 18 Rate Blood Pressure 134/86 Blood Pressure 124/81 [Left] O2 Sat by Pulse 99 100 Oximetry ED Medical Decision Making - Lab Data Lab Results 01/31/19 Range/Units 11:32 Troponin T < 0.010 (0.00-0.029) ng/mL - Medical Decision Making Patient here for panic attack. Known history of panic attacks and anxiety. States compliance with Abilify and citalopram. Follows with Dr. vee, psychiatry. Patient seen here yesterday for the same. EKG and troponin are normal. Patient denies any chest pain. We will send patient home with trial of Vistaril. Patient informed to follow-up with Dr. vee within the next 2-3 days. Strict return precautions were discussed in detail with patient who states understanding. Critical care attestation.: If time is entered above; I have spent that time in minutes in the direct care of this critically ill patient, excluding procedure time. ED Disposition Clinical Impression: Panic attack Disposition: DC-01 TO HOME OR SELFCARE Is pt being admited?: No Condition: Stable Instructions: Panic Disorder (ED) Additional Instructions: please call Dr. Simeon, your Psychiatrist, for a follow-up appointment within 2-3 days. Return to the emergency room if new or worsening symptoms. Prescriptions: hydrOXYzine PAMOATE [Vistaril] 25 mg PO Q6HR PRN #12 capsule PRN Reason: Anxiety
== END 2019-01-31 13:00 | disposition home or self-care (01) ==
LOC: ED 10:02
DX: F41.0 Panic disorder [episodic paroxysmal anxiety] (principal); I10 Essential (primary) hypertension; F32.9 Major depressive disorder, single episode, unspecified; E78.5 Hyperlipidemia, unspecified; F17.200 Nicotine dependence, unspecified, uncomplicated; Z79.899 Other long term (current) drug therapy; Z88.0 Allergy status to penicillin; Z91.030 Bee allergy status
CPT/HCPCS: 36415; 84484; 93005; 93010

== ENCOUNTER 2019-02-09 22:06 | Emergency (ER) | payer MEDICARE ==
[2019-02-09 22:45] VITALS: BP 128/90
[2019-02-10] MEDS ORDERED: hydrOXYzine PAMOATE 25 MG CAP PO ONE (00:14)
[2019-02-10] MEDS ORDERED: ALUM-MAG HYDROXIDE-SIMETHICONE 200-200-20MG/5ML ORAL LIQD 30 ML PO ONE (00:14)
--- NOTE | 2019-02-10 00:25 | Emergency Department Report ---
ED General Adult HPI - General Chief complaint: Anxiety Stated complaint: ANXIETY/HEARTBURN/ACID REFLUX Time Seen by Provider: 02/10/19 00:14 Source: patient Mode of arrival: Ambulatory Limitations: No Limitations - History of Present Illness Initial comments: pt is a 49 y/o aam with hx of depression, tx'd with zoloft , it current in tx program at [facility]. pt presents to ed tonight for heartburn after eating "greasy hamburger for dinner" states no maalox at facility. 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 pt has secondary request for refill of vistaril po. states he takes for anxiousness and stress. pt denies SI or HI. Pt rates symptoms at 2/10 at this time. Onset/Timin -: hour(s) Location: abdomen Radiation: non-radiation Severity scale (0 -10): 3 Quality: burning Consistency: intermittent Improves with: other (maalox ) Worsens with: eating Associated Symptoms: denies: chest pain, cough, fever/chills, headaches, nausea/vomiting, shortness of breath Treatments Prior to Arrival: none - Related Data Home Medications Medication Instructions Recorded Confirmed Last Taken Lisinopril [Zestril] 40 mg PO QDAY 01/22/14 01/31/19 01/30/19 Sertraline [Zoloft] 100 mg PO QDAY 01/22/14 01/31/19 01/30/19 Previous Rx's Medication Instructions Recorded Last Taken Type Mag Hydrox/Aluminum Hyd/Simeth 30 ml PO Q8H PRN #1 bottle 02/10/19 Unknown Rx [Maalox Advanced Suspension] hydrOXYzine PAMOATE [Vistaril] 25 mg PO Q8H PRN #9 capsule 02/10/19 Unknown Rx Allergies Allergy/AdvReac Type Severity Reaction Status Date / Time Penicillins Allergy Unknown Verified 01/27/19 14:04 venom-honey bee AdvReac Swelling Verified 01/27/19 14:04 [bee venom (honey bee)] ED Review of Systems ROS: Stated complaint: ANXIETY/HEARTBURN/ACID REFLUX Other details as noted in HPI Constitutional: denies: chills, fever Eyes: denies: eye pain, eye discharge, vision change ENT: denies: ear pain, throat pain Respiratory: denies: cough, shortness of breath, wheezing Cardiovascular: denies: chest pain, palpitations Endocrine: no symptoms reported Gastrointestinal: denies: abdominal pain, nausea, vomiting, diarrhea Genitourinary: denies: urgency, dysuria Musculoskeletal: denies: back pain, joint swelling, arthralgia Skin: denies: rash, lesions Neurological: denies: headache, weakness, paresthesias Psychiatric: denies: anxiety, depression Hematological/Lymphatic: denies: easy bleeding, easy bruising ED Past Medical Hx - Past Medical History Previous Medical History?: Yes Hx Hypertension: Yes Hx Renal Disease: Yes ("SLIGHTLY ELEVATED CREAT. LEVEL") Hx Psychiatric Treatment: Yes (anxiety, depression) Additional medical history: hyperlipidemia - Surgical History Past Surgical History?: Yes Additional Surgical History: kidney biopsy. LYMPH NODE BIOPSY - Social History Smoking Status: Current Every Day Smoker Substance Use Type: None - Medications Home Medications: Home Medications Medication Instructions Recorded Confirmed Last Taken Type Lisinopril [Zestril] 40 mg PO QDAY 01/22/14 01/31/19 01/30/19 History Sertraline [Zoloft] 100 mg PO QDAY 01/22/14 01/31/19 01/30/19 History Mag Hydrox/Aluminum Hyd/Simeth 30 ml PO Q8H PRN #1 bottle 02/10/19 Unknown Rx [Maalox Advanced Suspension] hydrOXYzine PAMOATE [Vistaril] 25 mg PO Q8H PRN #9 capsule 02/10/19 Unknown Rx ED Physical Exam - General Limitations: No Limitations General appearance: alert, in no apparent distress - Head Head exam: Present: atraumatic, normocephalic - Eye Eye exam: Present: normal appearance, PERRL, EOMI Pupils: Present: normal accommodation - ENT ENT exam: Present: mucous membranes moist - Neck Neck exam: Present: normal inspection, full ROM. Absent: tenderness - Respiratory Respiratory exam: Present: normal lung sounds bilaterally. Absent: respiratory distress, wheezes, stridor, chest wall tenderness - Cardiovascular Cardiovascular Exam: Present: regular rate, normal rhythm, normal heart sounds. Absent: systolic murmur, diastolic murmur, rubs, gallop - GI/Abdominal GI/Abdominal exam: Present: soft, normal bowel sounds. Absent: distended, tenderness, guarding, rebound, rigid, bruit, hernia - Rectal Rectal exam: Present: deferred - Extremities Exam Extremities exam: Present: normal inspection, full ROM, normal capillary refill. Absent: tenderness - Back Exam Back exam: Present: normal inspection, full ROM. Absent: tenderness, CVA tenderness (R), CVA tenderness (L), rash noted - Neurological Exam Neurological exam: Present: alert, oriented X3, CN II-XII intact, normal gait - Psychiatric Psychiatric exam: Present: normal affect, normal mood - Skin Skin exam: Present: warm, dry, intact, normal color ED Course Vital Signs 02/09/19 22:40 Temperature 97.8 F Pulse Rate 73 Respiratory 18 Rate Blood Pressure 128/90 O2 Sat by Pulse 99 Oximetry ED Medical Decision Making - Medical Decision Making pt given maalox in ed , symptoms resolved , pt denies epigastrict pain at this time no cp , no sob , n/v, stress level relived, plan, follow up with Psychiatrist in am for refill for vistaril and all psych medications, PCP for all medicine complaints. pt dc'd in stable condition at this time. pt [facility] via clinic nurse and facility van a this time , pt is a/o x 3 ambulatory with steady gait, nad. Critical care attestation.: If time is entered above; I have spent that time in minutes in the direct care of this critically ill patient, excluding procedure time. ED Disposition Clinical Impression: Stress, Heartburn Disposition: DC-01 TO HOME OR SELFCARE Is pt being admited?: No Does the pt Need Aspirin: No Condition: Stable Instructions: Stress (ED), Gastroesophageal Reflux Disease (ED) Prescriptions: Mag Hydrox/Aluminum Hyd/Simeth [Maalox Advanced Suspension] 30 ml PO Q8H PRN #1 bottle PRN Reason: heartburn hydrOXYzine PAMOATE [Vistaril] 25 mg PO Q8H PRN #9 capsule PRN Reason: Itching Referrals: [facility] [Outside] - 3-5 Days [facility] [Outside] - 3-5 Days Time of Disposition: 00:45
== END 2019-02-10 00:32 | disposition home or self-care (01) ==
LOC: ED 22:06
DX: F43.9 Reaction to severe stress, unspecified (principal); R12 Heartburn; I10 Essential (primary) hypertension; F41.9 Anxiety disorder, unspecified; F32.9 Major depressive disorder, single episode, unspecified; E78.5 Hyperlipidemia, unspecified; F17.200 Nicotine dependence, unspecified, uncomplicated
CPT/HCPCS: 99282; Q0177